=== PATIENT | female | born 1985 | race Caucasian/White ===

== ENCOUNTER → 2016-07-11 | Outpatient (CLI) | payer BC ==
[2016-07-11 07:40] LABS: Basophils # (auto) 0 uL; Basophils % (auto) 0.4 % (0.0-2.0); Eosinophils # (auto) 0.1 uL; Eosinophils % (auto) 1.4 % (0.0-7.0); Hematocrit 36.8 % (36.0-46.0); Hemoglobin 12.4 g/dL (12.2-16.2); Lymphocytes # (auto) 1.3 uL; Lymphocytes % (auto) 16.4 % (10.0-50.0); Mean Corpuscular Hemoglobin 29.7 pg (28.0-32.0); Mean Corpuscular Hgb Conc. 33.8 g/dL (32.0-36.0); Mean Corpuscular Volume 87.9 fL (80.0-100.0); Mean Platelet Volume 7.2 fL (7.4-10.4); Monocytes # (auto) 0.4 uL; Monocytes % (auto) 5.3 % (0.0-12.0); Neutrophils # (auto) 6.2 uL; Neutrophils % (auto) 76.5 % (37.0-80.0); Platelet Count (auto) 281 10^3/uL (140-450); Red Cell Distribution Width 13.7 % (11.6-16.0); White Blood Cell 8.1 10^3/uL (4.4-10.8)
== END | disposition home or self-care (01) ==
LOC: LAB 07:20
PROVIDERS: ATTEND Obstetrics & Gynecology
DX: Z34.80 Encounter for supervision of other normal pregnancy, unspecified trimester (principal); O99.810 Abnormal glucose complicating pregnancy
CPT/HCPCS: 36415; 82951; 85025

== ENCOUNTER → 2016-09-11 | Outpatient (CLI) | payer BC ==
[2016-09-11 16:48] LABS: Basophils # (auto) 0 uL; Basophils % (auto) 0.3 % (0.0-2.0); Eosinophils # (auto) 0.1 uL; Eosinophils % (auto) 1.4 % (0.0-7.0); Hematocrit 36.8 % (36.0-46.0); Hemoglobin 12.1 g/dL (12.2-16.2); Lymphocytes # (auto) 1.7 uL; Mean Corpuscular Hemoglobin 28.6 pg (28.0-32.0); Mean Corpuscular Volume 86.7 fL (80.0-100.0); Mean Platelet Volume 7.6 fL (7.4-10.4); Monocytes # (auto) 0.5 uL; Monocytes % (auto) 5.7 % (0.0-12.0); Neutrophils # (auto) 6.9 uL; Neutrophils % (auto) 74.6 % (37.0-80.0); Platelet Count (auto) 267 10^3/uL (140-450); Red Cell Distribution Width 14.2 % (11.6-16.0); White Blood Cell 9.3 10^3/uL (4.4-10.8)
[2016-09-11 17:08] LABS: Albumin 2.8 g/dL (3.4-5.0); BUN/Creatinine Ratio 17.6; Bilirubin, Total 0.7 mg/dL (0.2-1.0); Calcium 8.3 mg/dL (8.5-10.1); Potassium 3.5 mmol/L (3.5-5.1); Total Protein 6.8 g/dL (6.4-8.2); Uric Acid 4.7 mg/dL (2.6-6.0)
== END | disposition home or self-care (01) ==
LOC: LAB 16:31
PROVIDERS: ATTEND Obstetrics & Gynecology
DX: Z34.80 Encounter for supervision of other normal pregnancy, unspecified trimester (principal); Z11.3 Encounter for screening for infections with a predominantly sexual mode of transmission; N76.0 Acute vaginitis
CPT/HCPCS: 36415; 80053; 84550; 85025

== ENCOUNTER 2016-10-03 22:19 | Inpatient (IN) | payer BC ==
[~2016-10-03] VITALS: Ht 167.6 cm; Wt 106.1 kg
[2016-10-03] MEDS: LACTATED RINGER'S 1,000 ML IV SCH (22:23)
[2016-10-03] MEDS ORDERED: LACT. RINGERS/OXYTOCIN 20UNITS 1,000 ML IV SCH (22:23)
[2016-10-03] MEDS ORDERED: PHISODERM TOP SOLN 240ML BTL TOP PRN (22:30)
[2016-10-03] MEDS ORDERED: DERMOPLAST 60ML BOTTLE TOP PRN (22:30)
[2016-10-03] MEDS ORDERED: METHYLERGONOVINE MALEATE 0.2 MG/ML AMP IM PRN (22:30)
[2016-10-03] MEDS ORDERED: WITCH HAZEL-GLYCERIN PAD TOP PRN (22:30)
[2016-10-03] MEDS ORDERED: LIDOCAINE 2%HCL (LOCAL ANESTH.) INJ 20ML MDV IJ PRN (22:30)
[2016-10-03] MEDS ORDERED: PENICILLIN G POT 5MIL/D5 50ML 50 ML IV ONE (22:30)
[2016-10-03] MEDS ORDERED: NALBUPHINE HCL 10 MG/1ml INJECTION IV PRN (22:30)
[2016-10-03 23:03] LABS: Basophils # (auto) 0 uL; Basophils % (auto) 0.4 % (0.0-2.0); Eosinophils # (auto) 0.1 uL; Eosinophils % (auto) 1.2 % (0.0-7.0); Hematocrit 37.9 % (36.0-46.0); Hemoglobin 12.8 g/dL (12.2-16.2); Lymphocytes # (auto) 2.1 uL; Lymphocytes % (auto) 20.1 % (10.0-50.0); Mean Corpuscular Hemoglobin 29.7 pg (28.0-32.0); Mean Corpuscular Hgb Conc. 33.7 g/dL (32.0-36.0); Mean Corpuscular Volume 88.1 fL (80.0-100.0); Mean Platelet Volume 8.3 fL (7.4-10.4); Monocytes # (auto) 0.6 uL; Monocytes % (auto) 5.3 % (0.0-12.0); Neutrophils # (auto) 7.8 uL; Platelet Count (auto) 255 10^3/uL (140-450); Red Cell Distribution Width 15.5 % (11.6-16.0); White Blood Cell 10.6 10^3/uL (4.4-10.8)
[2016-10-03 23:10] LABS: Urine Bilirubin Negative (Negative); Urine Color Yellow (Yellow); Urine Glucose Normal (Normal); Urine Ketone Negative (Negative); Urine Mucus FEW (None Seen); Urine Nitrite Negative (Negative); Urine RBC 38 /hpf (0 - 4); Urine Squamous Epithelial Cell MANY /hpf (<5); Urine Urobilinogen Normal (Negative); Urine pH 5.5 (5.0-8.0)
[2016-10-03 23:11] LABS: Urine Blood 3+ /uL (Negative)
[2016-10-03 23:19] LABS: Albumin 2.7 g/dL (3.4-5.0); BUN/Creatinine Ratio 15.4; Calcium 8.2 mg/dL (8.5-10.1); Partial Thromboplastin Time 28.7 sec (22.64-33.71); Potassium 3.9 mmol/L (3.5-5.1); Prothrombin Time 9.5 sec (9.37-12.3)
[2016-10-03 23:22] LABS: Bilirubin, Total 0.8 mg/dL (0.2-1.0); Total Protein 6.6 g/dL (6.4-8.2)
[2016-10-03 23:23] LABS: INR 0.87 (0.9-1.15)
[2016-10-04] MEDS: PENICILLIN G POTASSIUM 2,500,000 UNITS in D5W 5% 50 ML IV SCH ×2 (02:58→07:16)
[2016-10-04] MEDS: LACTATED RINGER'S 1,000 ML IV SCH ×3 (06:23→22:23)
[2016-10-04] MEDS ORDERED: ePHEDrine SULFATE 50 MG/ML AMP IV ONE ×2 (09:00→11:30)
[2016-10-04] MEDS ORDERED: fentaNYL CITRATE 100 MCG/2 ML VL IV ONE (09:00)
[2016-10-04] MEDS ORDERED: NALOXONE HCL 0.4 MG/ML VIAL IV ONE ×2 (09:00→11:30)
[2016-10-04] MEDS ORDERED: fentaNYL W ROPIVACAINE 150 ML EPI SCH (09:00)
[2016-10-04] MEDS ORDERED: LIDOCAINE HCL 2 %PF INJ 10ML AMP IJ ONE (09:00)
[2016-10-04] MEDS ORDERED: ACETAMINOPHEN 325 MG TAB PO PRN (12:15)
[2016-10-04] MEDS ORDERED: ONDANSETRON HCL 4 MG/2 ML VIAL IV PRN (12:15)
[2016-10-04] MEDS ORDERED: LACT. RINGERS/OXYTOCIN 20UNITS 500 ML IV ONE (12:15)
[2016-10-04 16:00] VITALS: BP 115/63
[2016-10-04 20:00] VITALS: BP 121/58
[2016-10-04] MEDS: IBUPROFEN 600 MG TAB PO PRN (20:07)
[2016-10-04] MEDS ORDERED: ACCU-CHEK COMFORT CURVE STRIP VI SCH (22:30)
[2016-10-04 23:16] VITALS: BP 110/54
[2016-10-05 03:49] VITALS: BP 108/57
[2016-10-05] MEDS: IBUPROFEN 600 MG TAB PO PRN (04:53)
[2016-10-05 07:50] VITALS: BP 116/53
[2016-10-05 12:00] VITALS: BP 119/62
[2016-10-05] MEDS ORDERED: PREN-96 PO (12:49)
[2016-10-05 13:50] VITALS: BP 119/62
== END 2016-10-05 13:50 | disposition home or self-care (01) | DRG 775 ==
LOC: LDRP 22:19 → OBSVTOIN 22:20
PROVIDERS: ADMIT Obstetrics & Gynecology; ATTEND Obstetrics & Gynecology
PROC: 10E0XZZ Delivery of Products of Conception, External Approach (ICD-10-PCS; principal; 2016-10-04)
PROC: 10907ZC Drainage of Amniotic Fluid, Therapeutic from Products of Conception, Via Natural or Artificial Opening (ICD-10-PCS; 2016-10-04)
PROC: 3E0S3CZ (ICD-10-PCS; 2016-10-04)
PROC: 00HU33Z Insertion of Infusion Device into Spinal Canal, Percutaneous Approach (ICD-10-PCS; 2016-10-04)
DX: O76 Abnormality in fetal heart rate and rhythm complicating labor and delivery (principal); O36.8130 Decreased fetal movements, third trimester, not applicable or unspecified; O99.824 Streptococcus B carrier state complicating childbirth; O24.429 Gestational diabetes mellitus in childbirth, unspecified control; Z3A.39 39 weeks gestation of pregnancy; Z37.0 Single live birth; Z90.89 Acquired absence of other organs
CPT/HCPCS: 36415; 59025; 59409; 62282; 80053; 81001; 82948; 82962; 85025; 85610; 85730; 86850; 86900; 86901; 96365; 96366; 96372; 96375; G0378; J2405; J2540; J2590; J3010; J7060

== ENCOUNTER → 2017-04-03 | Outpatient (CLI) | payer BC ==
[~2017-04-03] MED LIST: PREN-96 PO
[2017-04-03 07:58] LABS: Basophils # (auto) 0 uL; Basophils % (auto) 0.7 % (0.0-2.0); Eosinophils # (auto) 0.1 uL; Eosinophils % (auto) 2.1 % (0.0-7.0); Hematocrit 44.9 % (36.0-46.0); Lymphocytes % (auto) 32.9 % (10.0-50.0); Mean Corpuscular Hemoglobin 29.2 pg (28.0-32.0); Mean Corpuscular Hgb Conc. 33.4 g/dL (32.0-36.0); Mean Corpuscular Volume 87.3 fL (80.0-100.0); Mean Platelet Volume 7.3 fL (6.9-10.8); Monocytes # (auto) 0.3 uL; Monocytes % (auto) 5.3 % (0.0-12.0); Neutrophils # (auto) 3.5 uL; Nucleated Red Blood Cells % 0.1 %; Platelet Count (auto) 307 10^3/uL (140-450); Red Cell Distribution Width 14.1 % (11.8-14.3); White Blood Cell 5.9 10^3/uL (4.4-10.8)
[2017-04-03 08:48] LABS: Albumin 3.5 g/dL (3.4-5.0); BUN/Creatinine Ratio 14.6; Bilirubin, Total 1.4 mg/dL (0.2-1.0); Calcium 8.4 mg/dL (8.5-10.1); Potassium 4.2 mmol/L (3.5-5.1); Total Protein 7.4 g/dL (6.4-8.2)
== END | disposition home or self-care (01) ==
LOC: LAB 06:58
PROVIDERS: ATTEND Obstetrics & Gynecology
DX: Z00.01 Encounter for general adult medical examination with abnormal findings (principal); R79.89 Other specified abnormal findings of blood chemistry
CPT/HCPCS: 36415; 80053; 80061; 83036; 84443; 85025

== ENCOUNTER 2018-09-24 07:10 | Observation (INO) | payer MEDICAID ==
[~2018-09-24] VITALS: Ht 167.6 cm; Wt 107.5 kg
[2018-09-24] MEDS ORDERED: ONDANSETRON HCL 4 MG/2 ML VIAL IV ONE (07:45)
[2018-09-24] MEDS ORDERED: LACTATED RINGER'S 1,000 ML IV ONE (07:45)
[2018-09-24 08:22] LABS: Basophils # (auto) 0 uL; Basophils % (auto) 0.2 % (0.0-2.0); Eosinophils # (auto) 0 uL; Eosinophils % (auto) 0.3 % (0.0-7.0); Hematocrit 37.6 % (36.0-46.0); Hemoglobin 12.7 g/dL (12.2-16.2); Lymphocytes # (auto) 0.6 uL; Lymphocytes % (auto) 8.3 % (10.0-50.0); Mean Corpuscular Hemoglobin 29.1 pg (28.0-32.0); Mean Corpuscular Hgb Conc. 33.6 g/dL (32.0-36.0); Mean Corpuscular Volume 86.6 fL (80.0-100.0); Monocytes # (auto) 0.4 uL; Monocytes % (auto) 6.2 % (0.0-12.0); Neutrophils # (auto) 5.8 uL; Nucleated Red Blood Cells % 0.1 %; Platelet Count (auto) 194 10^3/uL (140-450); Red Blood Cells 4.34 10^6/uL (4.0-5.20); Red Cell Distribution Width 14.3 % (11.8-14.3); White Blood Cell 6.8 10^3/uL (4.4-10.8)
[2018-09-24 08:42] LABS: Albumin 2.8 g/dL (3.4-5.0); BUN/Creatinine Ratio 14.3; Calcium 7.8 mg/dL (8.5-10.1); Potassium 3.5 mmol/L (3.5-5.1)
[2018-09-24 08:45] LABS: Total Protein 6.6 g/dL (6.4-8.2)
== END 2018-09-24 08:51 | disposition home or self-care (01) | DRG 566 ==
LOC: LDRP 07:10
PROVIDERS: ADMIT Obstetrics & Gynecology; ATTEND Obstetrics & Gynecology
DX: O21.2 Late vomiting of pregnancy (principal); E86.0 Dehydration; O99.282 Endocrine, nutritional and metabolic diseases complicating pregnancy, second trimester; O99.612 Diseases of the digestive system complicating pregnancy, second trimester; K52.9 Noninfective gastroenteritis and colitis, unspecified; Z3A.27 27 weeks gestation of pregnancy
CPT/HCPCS: 36415; 59025; 80053; 81002; 85025; 96374; G0378; J2405

== ENCOUNTER 2018-12-13 21:10 | Observation (INO) | payer MEDICAID | END 2018-12-13 23:00 | disposition home or self-care (01) | DRG 566 | LOC: LDRP 21:10 | PROVIDERS: ADMIT Specialist; ATTEND Specialist | DX: O00.01 Abdominal pregnancy with intrauterine pregnancy (principal); O62.9 Abnormality of forces of labor, unspecified; Z3A.38 38 weeks gestation of pregnancy | CPT/HCPCS: 59025; 81002; G0378 ==

== ENCOUNTER 2018-12-16 23:52 | Inpatient (IN) | payer MEDICAID ==
[~2018-12-16] VITALS: Ht 167.6 cm; Wt 109.3 kg
[2018-12-17] MEDS ORDERED: LACT. RINGERS/OXYTOCIN 20UNITS 1,000 ML IV SCH (00:31)
[2018-12-17] MEDS ORDERED: LIDOCAINE 2%HCL (LOCAL ANESTH.) INJ 20ML MDV ID ONE (00:45)
[2018-12-17] MEDS ORDERED: WITCH HAZEL-GLYCERIN PAD TOP PRN (00:45)
[2018-12-17] MEDS ORDERED: NALBUPHINE HCL 10 MG/1ml INJECTION IV PRN (00:45)
[2018-12-17] MEDS ORDERED: CARBOPROST TROMETHAMINE 250 MCG/1ML VIAL IM PRN (00:45)
[2018-12-17] MEDS ORDERED: METHYLERGONOVINE MALEATE 0.2 MG/ML AMP IM PRN (00:45)
[2018-12-17] MEDS ORDERED: DERMOPLAST 60ML BOTTLE TOP PRN (00:45)
[2018-12-17] MEDS ORDERED: PHISODERM TOP SOLN 240ML BTL TOP PRN (00:45)
[2018-12-17 01:59] LABS: Basophils # (auto) 0 uL; Basophils % (auto) 0.3 % (0.0-2.0); Eosinophils # (auto) 0.1 uL; Eosinophils % (auto) 1.2 % (0.0-7.0); Hematocrit 35.1 % (36.0-46.0); Hemoglobin 11.7 g/dL (12.2-16.2); Lymphocytes # (auto) 1.8 uL; Mean Corpuscular Hemoglobin 28.7 pg (28.0-32.0); Mean Corpuscular Hgb Conc. 33.4 g/dL (32.0-36.0); Mean Corpuscular Volume 85.9 fL (80.0-100.0); Monocytes # (auto) 0.7 uL; Monocytes % (auto) 7.9 % (0.0-12.0); Neutrophils # (auto) 5.7 uL; Neutrophils % (auto) 68.6 % (37.0-80.0); Nucleated Red Blood Cells % 0.1 %; Platelet Count (auto) 212 10^3/uL (140-450); Red Blood Cells 4.09 10^6/uL (4.0-5.20); Red Cell Distribution Width 14.8 % (11.8-14.3); White Blood Cell 8.3 10^3/uL (4.4-10.8)
[2018-12-17 02:21] LABS: INR < 0.93 (0.9-1.15); Partial Thromboplastin Time 26.9 sec (23.64-32.05)
[2018-12-17 02:25] LABS: Urine Bacteria NONE SEEN /hpf (None Seen); Urine Blood Negative /uL (Negative); Urine Specific Gravity 1.026 (1.001-1.035); Urine WBC 8 /hpf (0 - 5)
[2018-12-17] MEDS: LACTATED RINGER'S 1,000 ML IV SCH ×3 (02:25→23:08)
[2018-12-17 02:27] LABS: Albumin 2.5 g/dL (3.4-5.0); BUN/Creatinine Ratio 14.8; Calcium 8.2 mg/dL (8.5-10.1); Potassium 3.6 mmol/L (3.5-5.1)
[2018-12-17 02:30] LABS: Bilirubin, Total 0.7 mg/dL (0.2-1.0); Total Protein 6.1 g/dL (6.4-8.2)
[2018-12-17] MEDS ORDERED: ePHEDrine SULFATE 50 MG/ML AMP IV ONE ×2 (05:15→06:30)
[2018-12-17] MEDS ORDERED: fentaNYL W ROPIVACAINE 150 ML EPI SCH ×2 (05:15→06:30)
[2018-12-17] MEDS ORDERED: NALOXONE HCL 0.4 MG/ML VIAL IV ONE ×2 (05:15→06:30)
[2018-12-17] MEDS ORDERED: SODIUM CHLORIDE 0.9% 500 ML IV PRN (06:25)
[2018-12-17] MEDS ORDERED: LACT. RINGERS/OXYTOCIN 20UNITS 500 ML IV ONE (12:29)
[2018-12-17] MEDS ORDERED: ACETAMINOPHEN 325 MG TAB PO PRN ×2 (12:30→14:45)
[2018-12-17] MEDS: LACT. RINGERS/OXYTOCIN 20UNITS 1,000 ML IV SCH ×2 (13:29→23:08)
--- NOTE | 2018-12-17 14:30 | NUR ---
Ambulation: Patient OOB with standby assistance by RN. Patient ambulated to bathroom with steady gait. Patient able to void without difficulty. [facility] teaching provided with returned demonstration by patient. Clean gown provided and bed linen changed. Patient ambulated back to bed with steady gait and no distress noted.
[2018-12-17] MEDS ORDERED: IBUPROFEN 600 MG TAB PO PRN (14:45)
[2018-12-17 15:00] VITALS: BP 119/61
[2018-12-17 19:00] VITALS: BP 125/57
--- NOTE | 2018-12-17 19:00 | NUR ---
Teaching/ Bottle Education Reviewed information in [facility] booklet with patient. Discussed benefits of and risks associated with not . Patient is aware of risk and insists on bottle-feeding. Formula provided and instruction on formula preparation from the [facility] booklet reviewed with patient. Provided information of medication side effects related to . All questions and concerns addressed at this time. Patient verbalized understanding of information.
[2018-12-17] MEDS: IBUPROFEN 600 MG TAB PO PRN ×2 (19:50→22:53)
[2018-12-17 22:44] VITALS: BP 109/55
[2018-12-18 03:15] VITALS: BP 93/52
[2018-12-18] MEDS: LACTATED RINGER'S 1,000 ML IV SCH (04:16)
[2018-12-18 05:08] LABS: RPR Non Reactive (Non Reactive)
[2018-12-18 07:00] VITALS: BP 121/58
[2018-12-18] MEDS: IBUPROFEN 600 MG TAB PO PRN (08:54)
[2018-12-18 11:25] VITALS: BP 105/54
--- NOTE | 2018-12-18 13:30 | NUR ---
Discharge: Discharge instructions given as ordered. Pt encouraged to follow up with [facility] [employer] [facility] as instructed. All questions and concerns addressed. Patient verbalized understanding. Medication reconciliation completed and copy given to patient. All required/requested vaccines given and copies of vaccinations given to patient. Patient encouraged to prepare to depart unit.
--- NOTE | 2018-12-18 13:30 | NUR ---
Discharge: Discharge instructions given to mother of baby as ordered. Copies of and hearing screening, along with vaccination record given to mother. 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 All questions and concerns addressed. Mother of baby verbalized understanding and agreed to comply. Mother of baby encouraged to prepare for departure and notify RN ready to leave room for ID band removal/verification and car seat check.
--- NOTE | 2018-12-18 14:00 | NUR ---
Discharge: Patient taken to vehicle ambulatory with all personal belongings, accompanied by staff and family member. No distress noted at time of departure, no adverse changes in status since initial assessment.
== END 2018-12-18 14:00 | disposition home or self-care (01) | DRG 560 ==
LOC: LDRP 23:52
PROVIDERS: ADMIT Obstetrics & Gynecology; ATTEND Obstetrics & Gynecology
PROC: 10E0XZZ Delivery of Products of Conception, External Approach (ICD-10-PCS; principal; 2018-12-17)
PROC: 3E033VJ Introduction of Other Hormone into Peripheral Vein, Percutaneous Approach (ICD-10-PCS; 2018-12-17)
PROC: 3E0R3BZ Introduction of Anesthetic Agent into Spinal Canal, Percutaneous Approach (ICD-10-PCS; 2018-12-17)
PROC: 00HU33Z Insertion of Infusion Device into Spinal Canal, Percutaneous Approach (ICD-10-PCS; 2018-12-17)
DX: O80 Encounter for full-term uncomplicated delivery (principal); Z37.0 Single live birth; Z3A.39 39 weeks gestation of pregnancy
CPT/HCPCS: 36415; 51702; 59025; 59409; 62282; 80053; 81001; 81002; 84112; 85025; 85610; 85730; 86592; 86850; 86900; 86901; 96365; 96366; 96372; G0378; J2590; J3010

== ENCOUNTER 2019-01-28 06:09 | Day surgery (SDC) | payer MEDICAID ==
[~2019-01-28] VITALS: Ht 167.6 cm; Wt 99.8 kg
[2019-01-28] MEDS ORDERED: ceFAZolin 1GM/50ML 50 ML IV ONE (06:46)
[2019-01-28] MEDS ORDERED: GLYCOPYRROLATE 0.2 MG/ML 1ML VIAL ONE (07:19)
[2019-01-28] MEDS ORDERED: MEPERIDINE HCL (25 MG/ML) 1ML VIAL ONE (07:19)
[2019-01-28] MEDS ORDERED: LIDOCAINE HCL 2% TOP JELLY 5ML TOP ONE (07:19)
[2019-01-28] MEDS ORDERED: LIDOCAINE 2% (LOCAL ANESTH.) PF 5ml SDV ONE (07:19)
[2019-01-28] MEDS ORDERED: MIDAZOLAM HCL 1MG/1ML-2 ML VIAL ONE (07:19)
[2019-01-28] MEDS ORDERED: ROCURONIUM 10MG/ML 10ML VIAL IV ONE (07:19)
[2019-01-28] MEDS ORDERED: NEOSTIGMINE 1 MG/ML INJ (10mg/10ML VIAL) ONE (07:19)
[2019-01-28] MEDS ORDERED: ONDANSETRON HCL 4 MG/2 ML VIAL ONE (07:19)
[2019-01-28] MEDS ORDERED: SODIUM CHLORIDE LOCK 10 ML ONE (07:19)
[2019-01-28] MEDS ORDERED: KETOROLAC TROMETH 60MG/2ML VIAL ONE (07:19)
[2019-01-28] MEDS ORDERED: PROPOFOL 10 MG/ML 20 ML IV ONE (07:19)
[2019-01-28] MEDS ORDERED: fentaNYL CITRATE 100 MCG/2 ML VL ONE (07:19)
[2019-01-28] MEDS ORDERED: KETOROLAC TROMETH 30 MG/ML 1ML VIAL IV ONE (07:45)
[2019-01-28] MEDS ORDERED: fentaNYL CITRATE 100 MCG/2 ML VL IV PRN (07:45)
[2019-01-28] MEDS ORDERED: METOCLOPRAMIDE HCL 5MG/ml INJ 2ml VIAL IV PRN (07:45)
[2019-01-28] MEDS ORDERED: LACTATED RINGER'S 1,000 ML IV SCH (08:34)
[2019-01-28] MEDS ORDERED: ONDANSETRON HCL 4 MG/2 ML VIAL IV PRN (08:45)
[2019-01-28] MEDS: HYDROmorphone HCL 2 MG/ML VL IV PRN ×4 (08:46→09:20)
[2019-01-28 09:35] VITALS: BP 123/58
== END 2019-01-28 09:47 | disposition home or self-care (01) ==
LOC: SUR 06:09
PROVIDERS: ATTEND Obstetrics & Gynecology
DX: Z30.2 Encounter for sterilization (principal); Z98.890 Other specified postprocedural states
CPT/HCPCS: 58671; 86850; 86900; 86901; J0690; J1170; J1885; J2001; J2175; J2250; J2405; J2704; J3010

== ENCOUNTER 2020-03-23 11:25 | Emergency (ER) | payer MEDICAID ==
[~2020-03-23] VITALS: Ht 167.6 cm; Wt 107.5 kg
[2020-03-23 12:00] LABS: Basophils # (auto) 0 10 ^3/uL (0-0.2); Basophils % (auto) 0.8 % (0.0-2.0); Eosinophils # (auto) 0.1 10 ^3/uL (0-0.8); Eosinophils % (auto) 1.7 % (0.0-7.0); Hematocrit 39.8 % (36.0-46.0); Hemoglobin 13.3 g/dL (12.2-16.2); Lymphocytes # (auto) 0.7 10 ^3/uL (0.4-5.4); Lymphocytes % (auto) 17.1 % (10.0-50.0); Mean Corpuscular Hemoglobin 28.3 pg (28.0-32.0); Mean Corpuscular Hgb Conc. 33.5 g/dL (32.0-36.0); Mean Corpuscular Volume 84.4 fL (80.0-100.0); Monocytes # (auto) 0.3 10 ^3/uL (0-1.3); Monocytes % (auto) 7.9 % (0.0-12.0); Neutrophils % (auto) 72.5 % (37.0-80.0); Nucleated Red Blood Cells % 0.2 %; Platelet Count (auto) 237 10^3/uL (140-450); Red Blood Cells 4.71 10^6/uL (4.0-5.20); White Blood Cell 4.1 10^3/uL (4.4-10.8)
[2020-03-23 12:15] LABS: Potassium 3.6 mmol/L (3.5-5.1)
[2020-03-23 12:16] LABS: Urine Bacteria NONE SEEN /hpf (None Seen); Urine Blood 3+ /uL (Negative); Urine Budding Yeast OCCASIONAL /hpf (None Seen); Urine Mucus FEW (None Seen); Urine Specific Gravity 1.036 (1.001-1.035); Urine WBC 12 /hpf (0 - 5)
[2020-03-23 12:56] LABS: Albumin 3.8 g/dL (3.4-5.0); BUN/Creatinine Ratio 16.7; Bilirubin, Total 1.5 mg/dL (0.2-1.0); Calcium 8.4 mg/dL (8.5-10.1); Total Protein 7.6 g/dL (6.4-8.2)
[2020-03-23 15:50] VITALS: BP 145/76
== END 2020-03-23 15:28 | disposition home or self-care (01) ==
LOC: ER 11:25 → EEVIPCON 11:25 → ER 15:28
DX: K80.20 Calculus of gallbladder without cholecystitis without obstruction (principal)
CPT/HCPCS: 36415; 71250; 74176; 80053; 81001; 82150; 83036; 83690; 85025

== ENCOUNTER 2020-03-25 12:05 | Emergency (ER) | payer MEDICAID ==
[~2020-03-25] VITALS: Ht 167.6 cm; Wt 107.5 kg
[2020-03-25 12:28] VITALS: BP 128/86
== END 2020-03-25 15:44 | disposition home or self-care (01) ==
LOC: ER 12:05
DX: U07.1 COVID-19 (principal); J20.9 Acute bronchitis, unspecified; Z20.828 Contact with and (suspected) exposure to other viral communicable diseases
CPT/HCPCS: 36415; 71045; 87070; 87426; 87804; 87880

== ENCOUNTER → 2020-09-03 | Outpatient (CLI) | payer MEDICAID ==
[2020-09-04 06:06] LABS: RPR Non Reactive (Non Reactive)
== END | disposition home or self-care (01) ==
LOC: LAB 15:09
PROVIDERS: ATTEND Obstetrics & Gynecology
DX: Z20.2 Contact with and (suspected) exposure to infections with a predominantly sexual mode of transmission (principal)
CPT/HCPCS: 86592; 86703

== ENCOUNTER → 2020-11-06 | Outpatient (CLI) | payer MEDICAID ==
[2020-11-06 08:03] LABS: Basophils # (auto) 0.1 10 ^3/uL (0-0.2); Basophils % (auto) 0.8 % (0.0-2.0); Eosinophils # (auto) 0.1 10 ^3/uL (0-0.8); Eosinophils % (auto) 1.6 % (0.0-7.0); Hemoglobin 14.4 g/dL (12.2-16.2); Lymphocytes # (auto) 1.9 10 ^3/uL (0.4-5.4); Lymphocytes % (auto) 28.5 % (10.0-50.0); Mean Corpuscular Hemoglobin 28.8 pg (28.0-32.0); Mean Corpuscular Hgb Conc. 34.4 g/dL (32.0-36.0); Mean Corpuscular Volume 83.8 fL (80.0-100.0); Monocytes # (auto) 0.4 10 ^3/uL (0-1.3); Monocytes % (auto) 5.4 % (0.0-12.0); Neutrophils # (auto) 4.2 10 ^3/uL (1.6-8.6); Neutrophils % (auto) 63.7 % (37.0-80.0); Platelet Count (auto) 286 10^3/uL (140-450); Red Blood Cells 5.01 10^6/uL (4.0-5.20); Red Cell Distribution Width 14.1 % (11.8-14.3); White Blood Cell 6.6 10^3/uL (4.4-10.8)
[2020-11-06 08:23] LABS: Albumin 3.9 g/dL (3.4-5.0); Calcium 8.4 mg/dL (8.5-10.1); Potassium 3.8 mmol/L (3.5-5.1)
[2020-11-06 08:28] LABS: BUN/Creatinine Ratio 19.4; Bilirubin, Total 0.9 mg/dL (0.2-1.0); Total Protein 7.5 g/dL (6.4-8.2)
[2020-11-06 10:40] LABS: Leuteinizing Hormone 8.2 IU/L; Prolactin 16.39 ng/mL (2.8-29.2)
[2020-11-06 10:41] LABS: Follicle Stimulating Hormone 8.39 IU/L (SEE BELOW)
== END | disposition home or self-care (01) ==
LOC: LAB 07:43
PROVIDERS: ATTEND Obstetrics & Gynecology
DX: Z00.00 Encounter for general adult medical examination without abnormal findings (principal)
CPT/HCPCS: 36415; 80053; 80061; 82306; 82670; 83001; 83002; 83036; 84146; 84403; 84443; 85025

== ENCOUNTER → 2021-03-29 | Day surgery (SDC) | payer MEDICAID ==
[2021-03-26 12:29] LABS: INR 1.01 (0.9-1.15); Partial Thromboplastin Time 30.5 sec (23.6-33.0)
[2021-03-26 12:34] LABS: Basophils # (auto) 0 10 ^3/uL (0-0.2); Basophils % (auto) 0.7 % (0.0-2.0); Eosinophils # (auto) 0.1 10 ^3/uL (0-0.8); Eosinophils % (auto) 0.9 % (0.0-7.0); Hematocrit 41.6 % (36.0-46.0); Lymphocytes # (auto) 1.9 10 ^3/uL (0.4-5.4); Lymphocytes % (auto) 29.4 % (10.0-50.0); Mean Corpuscular Hemoglobin 28.5 pg (28.0-32.0); Mean Corpuscular Hgb Conc. 33.8 g/dL (32.0-36.0); Mean Corpuscular Volume 84.3 fL (80.0-100.0); Monocytes # (auto) 0.3 10 ^3/uL (0-1.3); Monocytes % (auto) 4.5 % (0.0-12.0); Neutrophils # (auto) 4.2 10 ^3/uL (1.6-8.6); Neutrophils % (auto) 64.5 % (37.0-80.0); Red Blood Cells 4.93 10^6/uL (4.0-5.20); Red Cell Distribution Width 14.2 % (11.8-14.3); White Blood Cell 6.6 10^3/uL (4.4-10.8)
[2021-03-26 12:55] LABS: Potassium 3.9 mmol/L (3.5-5.1)
[2021-03-26 13:10] LABS: Albumin 3.9 g/dL (3.4-5.0); BUN/Creatinine Ratio 16.7; Bilirubin, Total 0.6 mg/dL (0.2-1.0); Calcium 8.8 mg/dL (8.5-10.1); Total Protein 7.4 g/dL (6.4-8.2)
[2021-03-26 13:16] LABS: Urine Bacteria NONE SEEN /hpf (None Seen); Urine Blood Negative /uL (Negative); Urine Mucus FEW (None Seen); Urine Specific Gravity 1.029 (1.001-1.035); Urine WBC 14 /hpf (0 - 5)
[~2021-03-29] VITALS: Ht 167.6 cm; Wt 107.5 kg
[~2021-03-29] MED LIST changes: +DexAMETHasone SOD PHOS 10MG/1ML VIAL INJ ONE; +HYDROmorphone HCL 2 MG/ML VL IV PRN; +IOHEXOL 300 MG/ML 100ML BOTTLE IJ ONE; +LACTATED RINGER'S 1,000 ML IV SCH; +METOCLOPRAMIDE HCL 5MG/ml INJ 2ml VIAL IV PRN; +MIDAZOLAM HCL 2MG/2ML 2ml VIAL (1mg/ml) ONE; +MORPHINE SULFATE 4 MG/ML SYR/VIAL IV PRN; +ONDANSETRON HCL 4 MG/2 ML VIAL IV PRN; +ONDANSETRON HCL 4 MG/2 ML VIAL ONE; +PHEN-1325 PO; -PREN-96 PO; +PROPOFOL 10 MG/ML 20 ML IV ONE; +ceFAZolin 1GM/50ML 100 ML IV ONE; +fentaNYL CITRATE 100 MCG/2 ML VL ONE
[2021-03-29 10:30] VITALS: BP 108/58
== END | disposition home or self-care (01) ==
LOC: SUR 06:13
PROVIDERS: ATTEND Obstetrics & Gynecology
DX: N93.9 Abnormal uterine and vaginal bleeding, unspecified (principal); N92.0 Excessive and frequent menstruation with regular cycle; E66.9 Obesity, unspecified; Z98.51 Tubal ligation status; Z98.890 Other specified postprocedural states; Z79.899 Other long term (current) drug therapy; Z83.3 Family history of diabetes mellitus; Z90.89 Acquired absence of other organs; Z98.82 Breast implant status; Z20.822 Contact with and (suspected) exposure to COVID-19; Z68.38 Body mass index [BMI] 38.0-38.9, adult
CPT/HCPCS: 36415; 58563; 80053; 81001; 81025; 84702; 85025; 85610; 85730; 86850; 86900; 86901; 88305; J0690; J1100; J2250; J2405; J2704; J3010; Q9967; U0003

== ENCOUNTER → 2022-01-07 | Outpatient (CLI) | payer MEDICAID ==
[~2022-01-07] MED LIST changes: -DexAMETHasone SOD PHOS 10MG/1ML VIAL INJ ONE; -HYDROmorphone HCL 2 MG/ML VL IV PRN; -IOHEXOL 300 MG/ML 100ML BOTTLE IJ ONE; -LACTATED RINGER'S 1,000 ML IV SCH; -METOCLOPRAMIDE HCL 5MG/ml INJ 2ml VIAL IV PRN; -MIDAZOLAM HCL 2MG/2ML 2ml VIAL (1mg/ml) ONE; -MORPHINE SULFATE 4 MG/ML SYR/VIAL IV PRN; -ONDANSETRON HCL 4 MG/2 ML VIAL IV PRN; -ONDANSETRON HCL 4 MG/2 ML VIAL ONE; -PROPOFOL 10 MG/ML 20 ML IV ONE; -ceFAZolin 1GM/50ML 100 ML IV ONE; -fentaNYL CITRATE 100 MCG/2 ML VL ONE
[2022-01-07 07:24] LABS: Basophils # (auto) 0.1 10 ^3/uL (0-0.2); Eosinophils # (auto) 0.1 10 ^3/uL (0-0.8); Eosinophils % (auto) 1.4 % (0.0-7.0); Hematocrit 43.3 % (36.0-46.0); Hemoglobin 14.3 g/dL (12.2-16.2); Lymphocytes # (auto) 1.9 10 ^3/uL (0.4-5.4); Lymphocytes % (auto) 30.6 % (10.0-50.0); Mean Corpuscular Hemoglobin 27.7 pg (28.0-32.0); Mean Corpuscular Hgb Conc. 33.1 g/dL (32.0-36.0); Mean Corpuscular Volume 83.9 fL (80.0-100.0); Monocytes # (auto) 0.3 10 ^3/uL (0-1.3); Monocytes % (auto) 5.4 % (0.0-12.0); Neutrophils # (auto) 3.9 10 ^3/uL (1.6-8.6); Neutrophils % (auto) 61.6 % (37.0-80.0); Nucleated Red Blood Cells % 0.1 %; Red Blood Cells 5.16 10^6/uL (4.0-5.20); Red Cell Distribution Width 14.2 % (11.8-14.3); White Blood Cell 6.3 10^3/uL (4.4-10.8)
[2022-01-07 07:54] LABS: Cholesterol 169 mg/dL (< 200); HDL Cholesterol 55 mg/dL (40-59); LDL Cholesterol 116 mg/dL (< 100); Triglycerides 65 mg/dL (< 150)
[2022-01-08 07:06] LABS: RPR Non Reactive (Non Reactive)
== END | disposition home or self-care (01) ==
LOC: LAB 06:59
PROVIDERS: ATTEND Obstetrics & Gynecology
DX: Z00.00 Encounter for general adult medical examination without abnormal findings (principal); Z20.2 Contact with and (suspected) exposure to infections with a predominantly sexual mode of transmission
CPT/HCPCS: 36415; 80061; 83036; 84146; 84443; 85025; 86592; 86703

== ENCOUNTER 2023-10-22 21:01 | Emergency (ER) | payer BC, MEDICAID ==
[~2023-10-22] VITALS: Ht 167.6 cm; Wt 103.0 kg
[2023-10-22 21:30] VITALS: BP 127/78; PULSE 91; RESP 16; TEMP 98.4
[2023-10-22] MEDS ORDERED: TETANUS-DIPTH-ACEL PERTUSSIS 0.5ML SYR Tdap IM ONE (23:15)
[2023-10-23] MEDS: IBUPROFEN 600 MG TAB PO ONE (00:14)
[2023-10-23 00:19] VITALS: O2SAT 99
== END 2023-10-23 00:31 | disposition home or self-care (01) ==
LOC: ER 21:01 → EEVIPCON 21:01 → ER 10-23 00:21
DX: S61.102A Unspecified open wound of left thumb with damage to nail, initial encounter (principal); W22.8XXA Striking against or struck by other objects, initial encounter; Y93.89 Activity, other specified; Y92.89 Other specified places as the place of occurrence of the external cause; Y99.8 Other external cause status
CPT/HCPCS: 11730

== ENCOUNTER → 2024-02-17 | Outpatient (CLI) | payer MEDICAID | END | disposition home or self-care (01) | LOC: LAB 08:29 | PROVIDERS: ATTEND Obstetrics & Gynecology | DX: B01.9 Varicella without complication (principal) | CPT/HCPCS: 86787 ==